=== PATIENT | female | born 1995 | race Caucasian/White ===

== ENCOUNTER 2017-11-04 01:05 | Inpatient (IN) | payer OTHER ==
[2017-11-04] VITALS (12 sets, daily range): BP systolic 107–157; BP diastolic 56–84; PULSE 85–117; RESP 15–20; TEMP 97.8–100.4; O2SAT 95–100
[~2017-11-04 01:05] MED LIST: BISACODYL 10 MG SUPP RECTAL PRN; FAMOTIDINE 20 MG TAB PO PRN; FERR325T18 PO; HUMA1INJ3 IM; HYDR1CRE TOPICAL; LACTULOSE SYRUP 20 GM/30 ML CUP PO PRN; LEVO112T2 PO; MAGNESIUM HYDROXIDE SUSP 30 ML CUP PO PRN; NALOXONE HCL 0.4 MG/ML AMP IV PUSH PRN; NORE1TAB58 PO; RANI150T PO; SENNOSIDES 8.6 MG TAB PO PRN; VITA100064 PO
[2017-11-04] MEDS ORDERED: IOHEXOL 350 MG/ML 50 ML BTL (for RAD DIAG) OTHER ONE (01:16)
[2017-11-04] MEDS: SODIUM CHLOR 0.9% 1000 ML INJ 1,000 ML IV SCH ×3 (01:42→21:13)
[2017-11-04] MEDS: SODIUM CHLORIDE 0.9% FLUSH 10 ML FLUSH IV FLUSH PRN (01:43)
[2017-11-04] MEDS: MORPHINE SULFATE 4 MG/ML INJ IV PUSH PRN ×3 (01:43→16:46)
--- NOTE | 2017-11-04 02:40 | HHI.HP ---
HPI Service [facility] Primary Care Physician No Primary Care Physician Admission Diagnosis obstructive uropathy, right nephrolithiasis, right hydronephrosis . Diagnoses: (1) Obstructive uropathy Chief Complaint: right flank pain Travel History International Travel<30 Days: No Contact w/Intl Traveler <30 Da: No Traveled to Known Affected Are: No Sepsis Criteria SIRS Criteria (2 or more): Heart rate over 90, WBC > 43207, < 4000 or > 10% bands History of Present Illness Ms. Wheeler is a pleasant 22 year-old female with a history of hypothyroidism who presented to the ER complaining of right flank pain who was found to have obstructive uropathy with a 1.7 cm ureteral stone and hydronephrosis. The patient is seen in the CDU. She reports having progressively worsening pain in the right flank area since 10/29/17. She was treating the pain with Aleve and it was ineffective today prompting her visit to the ER. She was also having chills with nausea but no vomiting yesterday. IV morphine has been successfully alleviating her pain. Review of Systems Except as stated in HPI: all other systems reviewed are Neg Past Family Social History Past Medical History Hypothyroidism Allergic Rhinitis . Past Surgical History Denies any prior surgeries . Reported Medications Reported Meds & Active Scripts Active Loestrin Fe 1.5/30 (Norethindrone-Ethinyl Estradiol-Fe) 1.5-30 Mg-Mcg Tab 1 Tab PO DAILY Ferrous Sulfate 325 Mg (65 Mg Iron) Tablet 325 Mg PO TIDPC Take for 3 months. Take on empty stomach with citrus juice. May cause constipation. Levothyroxine (Levothyroxine Sodium) 112 Mcg Tab 112 Mcg PO DAILY Hydrocortisone Topical 1% Cream 1 Applic TOPICAL BID Apply on affected area for up to two weeks then stop. Ranitidine (Ranitidine HCl) 150 Mg Tab 150 Mg PO BID PRN Reported Vitamin D3 (Cholecalciferol) 1,000 Unit Tab 1,000 Units PO DAILY . Allergies: Coded Allergies: No Known Allergies (Verified Adverse Reaction, Unknown, 11/03/17) Family History M. Aunts and M. GM with DM, 1/2 brother with autism, 1/2 brother with ODD and ADHD . Social History Tobacco: denies Alcohol: social drinking Illicit Drugs: denies . Physical Exam Vital Signs Vital Signs Date Time Temp Pulse Resp B/P (MAP) Pulse Ox O2 Delivery O2 Flow Rate FiO2 11/04/17 01:48 15 11/04/17 01:23 98.7 103 15 119/70 (86) 99 Physical Exam GENERAL: This is an obese female patient, in no apparent distress. SKIN: No rashes, ecchymoses or lesions. Skin is warm to touch. HEAD: Atraumatic. Normocephalic. EYES: No scleral icterus. No injection or drainage. ENT: Nose without bleeding, purulent drainage. NECK: Trachea midline. No JVD or lymphadenopathy. CARDIOVASCULAR: Tachycardic rate without murmurs, gallops, or rubs. RESPIRATORY: Clear to auscultation. Breath sounds equal bilaterally. No wheezes , rales, or rhonchi. GASTROINTESTINAL: Abdomen soft, non-tender, nondistended. No guarding. GENITOURINARY: right CVA tenderness MUSCULOSKELETAL: Extremities without clubbing, cyanosis, or edema. No calf tenderness. NEUROLOGICAL: Awake and alert. Motor and sensory grossly within normal limits. Normal speech. . Laboratory Laboratory Tests Test 11/03/17 21:30 11/03/17 21:41 White Blood Count 15.0 TH/MM3 Red Blood Count 4.48 MIL/MM3 Hemoglobin 12.1 GM/DL Hematocrit 36.2 % Mean Corpuscular Volume 80.8 FL Mean Corpuscular Hemoglobin 27.0 PG Mean Corpuscular Hemoglobin Concent 33.4 % Red Cell Distribution Width 13.3 % Platelet Count 252 TH/MM3 Mean Platelet Volume 11.0 FL Immature Granulocyte % (Auto) 0.4 % Neutrophils (%) (Auto) 69.8 % Lymphocytes (%) (Auto) 12.3 % Monocytes (%) (Auto) 17.1 % Eosinophils (%) (Auto) 0.1 % Basophils (%) (Auto) 0.3 % Immature Granulocyte # (Auto) 0.1 TH/MM3 Neutrophils # (Auto) 10.5 TH/MM3 Lymphocytes # (Auto) 1.8 TH/MM3 Monocytes # (Auto) 2.6 TH/MM3 Eosinophils # (Auto) 0.0 TH/MM3 Basophils # (Auto) 0.0 TH/MM3 CBC Comment AUTO DIFF Differential Comment AUTO DIFF CONFIRMED Platelet Estimate NORMAL Platelet Morphology Comment NORMAL Urine Color YELLOW Urine Turbidity CLEAR Urine pH 6.5 Urine Specific [place] LESS/EQUAL 1.005 Urine Protein TRACE mg/dL Urine Glucose (UA) NEG mg/dL Urine Ketones NEG mg/dL Urine Occult Blood TRACE Urine Nitrite NEG Urine Bilirubin NEG Urine Urobilinogen 1.0 MG/DL Urine Leukocyte Esterase SMALL Urine WBC 3-5 /hpf Urine Squamous Epithelial Cells 0-5 /hpf Urine Bacteria FEW /hpf Microscopic Urinalysis Comment CULT NOT INDICATED Blood Urea Nitrogen 9 MG/DL Creatinine 1.10 MG/DL Random Glucose 110 MG/DL Total Protein 8.4 GM/DL Albumin 3.1 GM/DL Calcium Level 8.9 MG/DL Alkaline Phosphatase 109 U/L Aspartate Amino Transf (AST/SGOT) 18 U/L Alanine Aminotransferase (ALT/SGPT) 25 U/L Total Bilirubin 1.1 MG/DL Sodium Level 136 MEQ/L Potassium Level 4.1 MEQ/L Chloride Level 103 MEQ/L Carbon Dioxide Level 24.0 MEQ/L Anion Gap 9 MEQ/L Estimat Glomerular Filtration Rate 63 ML/MIN Lactic Acid Level 0.8 mmol/L . Imaging Last Impressions Abdomen/Pelvis CT 11/03/172119 Signed Impressions: CONCLUSION: Pronounced right hydronephrosis. Large proximal right ureteral stone. . Caprini VTE Risk Assessment Caprini VTE Risk Assessment: No/Low Risk (score <= 1) Caprini Risk Assessment Model Point Value = 1 Point Value = 2 Point Value = 3 Point Value = 5 Age 41-60 Minor surgery BMI > 25 kg/m2 Swollen legs Varicose veins or History of unexplained or recurrent spontaneous Oral contraceptives or hormone replacement Sepsis (< 1 month) Serious lung disease, including pneumonia (< 1 month) Abnormal pulmonary function Acute myocardial infarction Congestive heart failure (< 1 month) History of inflammatory bowel disease Medical patient at bed rest Age 61-74 Arthroscopic surgery Major open surgery (> 45 min) Laparoscopic surgery (> 45 min) Malignancy Confined to bed (> 72 hours) Immobilizing plaster cast Central venous access Age >= 75 History of VTE Family history of VTE Factor V Leiden Prothrombin [id number] Lupus anticoagulant Anticardiolipin antibodies Elevated serum homocysteine Heparin-induced thrombocytopenia Other congenital or acquired thrombophilia Stroke (< 1 month) Elective arthroplasty Hip, pelvis, or leg fracture Acute spinal cord injury (< 1 month) Prophylaxis Regimen Total Risk Factor Score Risk Level Prophylaxis Regimen 0-1 Low Early ambulation 2 Moderate Order ONE of the following: *Sequential Compression Device (SCD) *Heparin 5000 units SQ BID 3-4 Higher Order ONE of the following medications: *Heparin 5000 units SQ TID *Enoxaparin/Lovenox 40 mg SQ daily (WT < 150 kg, CrCl > 30 mL/min) *Enoxaparin/Lovenox 30 mg SQ daily (WT < 150 kg, CrCl > 10-29 mL/min) *Enoxaparin/Lovenox 30 mg SQ BID (WT < 150 kg, CrCl > 30 mL/min) AND/OR *Sequential Compression Device (SCD) 5 or more Highest Order ONE of the following medications: *Heparin 5000 units SQ TID (Preferred with Epidurals) *Enoxaparin/Lovenox 40 mg SQ daily (WT < 150 kg, CrCl > 30 mL/min) *Enoxaparin/Lovenox 30 mg SQ daily (WT < 150 kg, CrCl > 10-29 mL/min) *Enoxaparin/Lovenox 30 mg SQ BID (WT < 150 kg, CrCl > 30 mL/min) AND *Sequential Compression Device (SCD) Assessment and Plan Problem List: (1) Obstructive uropathy ICD Code: N13.9 - Obstructive and reflux uropathy, unspecified Assessment and Plan Ms. Wheeler is a pleasant 22 year-old female with a history of hypothyroidism who presented to the ER complaining of right flank pain who was found to have obstructive uropathy with a 1.7 cm ureteral stone and hydronephrosis. Obstructive Uropathy Ureteral stone - 1.7 cm, right Hydronephrosis, right - Consult urology - appreciate assistance - Morphine 2 - 4 mg IV q4h PRN pain Suspect UTI - febrile, tachycardic, leukocytosis, UA with possible early signs of infection (small leukocyte esterase and few bacteria) - check urine culture - start Ceftriaxone 1 gm IV q24h - await culture results and adjust treatment as indicated FLAVIA - IVF with NS at 100 cc/hr - recheck BMP in a.m. and follow renal indices Hypothyroidism - resume home Synthroid DVT prophylaxis - early ambulation . Discussed Condition With Patient and RN . Ally Hutchinson Nov 04, 2017 02:39
[2017-11-04] MEDS: ACETAMINOPHEN 325 MG TAB PO PRN ×2 (02:46→21:12)
[2017-11-04] MEDS ORDERED: cefTRIAXone INJ 1,000 MG in SODIUM CHLORIDE 0.9% INJ 100 ML IV SCH (03:00)
[2017-11-04] MEDS: LEVOTHYROXINE SODIUM 112 MCG TAB PO SCH (05:27)
[2017-11-04] MEDS: SODIUM CHLORIDE 0.9% FLUSH 10 ML FLUSH IV FLUSH SCH ×2 (09:00→21:13)
--- NOTE | 2017-11-04 09:09 | MB ---
cc: PalmerKevinn China DO DATE: 11/04/2017 HISTORY OF PRESENT ILLNESS: This is a pleasant 22-year-old female who presented with 1 week of right-sided flank pain, which has been intermittent. She denies any fevers, chills, nausea and vomiting. She denies any prior history of stones or family history of stones. A CT scan in the emergency room demonstrated a right-sided hydronephrosis with a large 2 cm right proximal ureteral stone causing obstruction. PAST MEDICAL HISTORY: Noted for hypothyroidism and . PAST SURGICAL HISTORY: She denies any prior surgeries. MEDICATIONS: Please see the chart. ALLERGIES: SHE HAS NO KNOWN DRUG ALLERGIES. FAMILY HISTORY: She denies any family history of nephrolithiasis. SOCIAL HISTORY: She denies smoking, drinking or using drugs. She currently works at [employer]. REVIEW OF SYSTEMS: Notes right-sided flank pain. Denies chest pain, shortness of breath, bleeding disorders, gait disturbances, psychiatric problems, skin lesions. neurologic issues such as weakness or headaches. The remaining review of systems were reviewed and were negative. PHYSICAL EXAMINATION: VITAL SIGNS: Temperature 100.4 T-max, heart rate 103, respiratory rate 15, 119/70 is her blood pressure, 99% on room air. GENERAL: She is a slightly obese 22-year-old female in no acute distress. HEENT: Normocephalic, atraumatic. Pupils equal, round, regular and reactive to light. Extraocular movements intact. NECK: Supple. HEART: Regular rate and rhythm. LUNGS: Clear. ABDOMEN: Soft, nontender, nondistended. There is right CVA tenderness noted. EXTREMITIES: Show no evidence of cyanosis, clubbing, or edema. NEUROLOGIC: Cranial nerves 2-12 are intact. LABORATORY DATA: White count 15.0, hemoglobin is 12.1, hematocrit 36.2, platelet count of 252. Sodium 136, potassium 4.1, CO2 103, chloride is 103, CO2 is 24.0, BUN is 9, creatinine 1.1, glucose of 110. Urinalysis: Small leukocyte esterase. Culture not indicated. PT-INR, PTT is currently pending. IMAGING: Again, imaging studies show a significant right hydronephrosis with a large proximal right ureteral stone approximately 2 cm in diameter. ASSESSMENT AND PLAN: A 22-year-old female who presented with right flank pain with findings of a 2 cm proximal right ureteral stone causing severe right-sided hydronephrosis. Would recommend right percutaneous nephrostomy tube. Due to the large size of the stone, it is very difficult to pass a wire beyond this and then passed the stent over the wire. Given its large size. Therefore, would recommend a percutaneous nephrostomy tube followed by internalization at a later date, followed by extracorporeal shock wave lithotripsy. Thank you for the consult and allowing me to participate in the care of this patient. DO MARIANELA Malone/PATSY , 08:28 AM , 09:08 AM
--- NOTE | 2017-11-04 09:19 | HHI.PR ---
Subjective Remarks Follow-up for nephrolithiasis, obstructive uropathy, hydronephrosis, UTI. Patient reports mild improvement of her right flank pain, however still painful , does get relief with IV morphine. Denies any fevers or chills. Denies any dysuria or suprapubic pain. Denies any increased urinary frequency/urgency. She is urinating without difficulty. She has no other medical complaints at this time. Objective Vitals Vital Signs Date Time Temp Pulse Resp B/P (MAP) Pulse Ox O2 Delivery O2 Flow Rate FiO2 11/04/17 05:24 99.1 11/04/17 02:48 100.4 11/04/17 01:48 15 11/04/17 01:23 98.7 103 15 119/70 (86) [address] abdomen/pelvis on 11/03/17 showed prominent right hydronephrosis and proximal hydroureter down to the level of a 1.7 cm stone in the proximal right ureter Objective Remarks GENERAL: Well-nourished, well-developed pleasant young female patient in [facility]. SKIN: Warm and dry. No rash. HEENT: Normocephalic. Atraumatic. Pupils equal and round. Mucous membranes pink and moist. CARDIOVASCULAR: Regular rate and rhythm. No murmur appreciated. RESPIRATORY: No accessory muscle use. Clear to auscultation. Breath sounds equal bilaterally. GASTROINTESTINAL: Abdomen soft, non-tender, nondistended. Normoactive bowel sounds x4. MUSCULOSKELETAL: No obvious deformities. Extremities without clubbing, cyanosis , or edema. + Right CVA tenderness. NEUROLOGICAL: Awake and alert. No obvious cranial nerve deficits. Motor grossly within normal limits. Moving all extremities spontaneously. Normal speech. PSYCHIATRIC: Appropriate mood and affect; insight and judgment normal. Medications and IVs Current Medications Medications (Trade) Dose Ordered Sig/Mk Route Start Time Stop Time Status Last Admin Sodium Chloride 1,000 ml @ 100 mls/hr Q10H IV 11/04/17 00:01 11/04/17 01:42 (NS Flush) 2 ml UNSCH PRN IV FLUSH 11/04/17 00:15 11/04/17 01:43 (NS Flush) 2 ml BID IV FLUSH 11/04/17 09:00 (Tylenol) 650 mg Q4H PRN PO 11/04/17 00:15 11/04/17 02:46 (Narcan Inj) 0.4 mg UNSCH PRN IV PUSH 11/04/17 00:15 (Milk Of Magnesia Liq) 30 ml Q12H PRN PO 11/04/17 00:15 (Senokot) 17.2 mg Q12H PRN PO 11/04/17 00:15 (Dulcolax Supp) 10 mg DAILY PRN RECTAL 11/04/17 00:15 (Lactulose Liq) 30 ml DAILY PRN PO 11/04/17 00:15 (Morphine Inj) 2 mg Q3H PRN IV PUSH 11/04/17 00:15 11/04/17 08:10 (Ferrous Sulfate) 325 mg TIDPC PO 11/04/17 09:30 (Synthroid) 112 mcg DAILY@0600 PO 11/04/17 06:00 11/04/17 05:27 (Pepcid) 20 mg BID PRN PO 11/04/17 00:30 (Morphine Inj) 4 mg Q3H PRN IV PUSH 11/04/17 02:30 Ceftriaxone Sodium 1000 mg/ Sodium Chloride 100 ml @ 200 mls/hr Q24H IV 11/04/17 03:00 11/04/17 03:27 A/P Problem List: (1) Obstructive uropathy ICD Code: N13.9 - Obstructive and reflux uropathy, unspecified Assessment and Plan 22-year-old female with history of hypothyroidism presents with right flank pain since 10/29/17 Ureterolithiasis, obstructive uropathy, hydronephrosis: Acute -CT abdomen/pelvis on 11/03/17 reviewed, showed prominent right hydronephrosis and proximal hydroureter down to the level of a 1.7 cm stone in the proximal right ureter -Continue IVF, pain control with IV morphine -Consulted urology, appreciate recommendations -IR consulted for percutaneous nephrostomy tube Sepsis with Pyelonephritis: Patient meets sepsis criteria with fever 100.4, tachycardia heart rate 103, WBC 15 K, and suspected source -pyelonephritis -Change antibiotics to IV Zosyn -Give IV fluid hydration -Monitor urine culture, adjust antibiotics as appropriate -Monitor CBC FLAVIA: Postrenal secondary to obstructive uropathy as above -Continue IVF hydration -Avoid nephrotoxins -Monitor renal function Hypothyroidism: chronic -continue patient's Synthroid DVT Prophylaxis: ambulation; avoid chemoprophylaxis with upcoming procedure Smitha Sam PA-C Nov 04, 2017 09:19
[2017-11-04 10:36] LABS: INTERNATIONAL NORMALIZED RATIO 1.1 RATIO; PROTHROMBIN TIME - PATIENT 11.3 SEC (9.8-11.6)
[2017-11-04] MEDS: FERROUS SULFATE 325 MG (65 MG ELEMENTAL IRON) TAB PO SCH ×3 (12:36→18:30)
[2017-11-04] MEDS ORDERED: MIDAZOLAM HCL 2 MG/2 ML VIAL ONE (13:23)
--- NOTE | 2017-11-04 14:08 | PD.RAD ---
Post Procedure Progress Note Pre Procedure Diagnosis: (1) Obstructive uropathy Post Procedure Diagnosis: (1) Obstructive uropathy Procedure Date: Nov 04, 2017 Supervising Radiologist: Alexander Hadley Estimated blood loss: none Anesthesia: Local, Conscious Sedation Plan of Activity Patient to Unit: ROPU Patient Condition: Good Additional Comments: Right nephrostomy placed. Copious amount of purulent urine returned. Tube in good position See PACS Report for procedural detail/treatment Alexander Hadley MD Nov 04, 2017 14:08
--- NOTE | 2017-11-04 14:50 | RADRPT ---
EXAM DATE: 11/04/2017 2:40 PM EDT AGE/SEX: 22 years / Female INDICATIONS: Patient presents with right kidney hydronephrosis in need of nephrostomy tube placement for decompression. CLINICAL DATA: This is the patient's initial encounter. Patient reports that signs and symptoms have been present for 1 day and indicates a pain score of 0/10. MEDICAL/SURGICAL HISTORY: . Hypothyroidism . Denies any prior surgeries COMPARISON: No prior exams available for comparison. FLUORO TIME (min): 2.16 IMAGE SERIES: 2 SEDATION TIME (min): 10 CONTRAST (cc): 5 CC Omnipaque (iohexol) 350 MEDICATION(S): 3 MG midazolam (Versed) IV 150 MCG fentanyl (Sublimaze) IV DEVICE(S): 8 Welsh nephrostomy catheter . . PROCEDURE : 1. Ultrasound-guided puncture of the kidney. 2. Antegrade percutaneous pyelogram. 3. Percutaneous nephrostomy placement. 4. Conscious sedation with continuous EKG and oximetry monitoring. The risks, benefits and alternatives to the procedure were explained and verbal and written consent w as obtained. The site was prepped in sterile fashion. Full sterile technique was used, including ca p, mask, sterile gloves and gown and a large sterile sheet. Hand hygiene and 2% chlorhexidine and/or betadine/alcohol prep was utilized per protocol for cutaneous antisepsis. Sterile gel and sterile probe cover were utilized for ultrasound guidance. The skin and subcutaneous tissues were infiltrate d with local anesthetic solution. With ultrasound and fluoroscopic guidance the right kidney was punctured. A 0.035 angle Glidewire was advanced into the collecting system. An 8 Welsh nephrostomy drain was advanced over the wire and po sitioned within the collecting system without difficulty. There was immediate return of a copious dana unt of purulent urine. Limited Percutaneous antegrade pyelogram was performed demonstrating a dilated collecting system. Conscious sedation was performed with the prescribed dosages and duration as above in the presence of an independent trained radiology nurse to assist in the monitoring of the patient. EKG and oximetry remained stable throughout the procedure. The patient tolerated the procedure well and there were n o complications. The patient was sent to post anesthesia recovery in stable condition. CONCLUSION: 1. Uncomplicated nephrostomy tube placement as above. Electronically signed by: Alexander Hadley MD 11/04/2017 2:49 PM EDT
[2017-11-04] MEDS: PIPERACIL-TAZO 4.5 GM PREMIX 100 ML IV SCH ×2 (16:46→21:12)
[2017-11-05] MEDS: PIPERACIL-TAZO 4.5 GM PREMIX 100 ML IV SCH ×2 (03:21→10:13)
[2017-11-05] MEDS: SODIUM CHLORIDE 0.9% FLUSH 10 ML FLUSH IV FLUSH PRN (03:22)
[2017-11-05] MEDS: MORPHINE SULFATE 4 MG/ML INJ IV PUSH PRN (03:22)
[2017-11-05] MEDS: LEVOTHYROXINE SODIUM 112 MCG TAB PO SCH (05:56)
--- NOTE | 2017-11-05 08:14 | HHI.PR ---
Subjective Patient symptoms today Pt seen and examined. Feeling better after right PCNT placement. Objective Vital Signs Vital Signs Date Time Temp Pulse Resp B/P (MAP) Pulse Ox O2 Delivery O2 Flow Rate FiO2 11/05/17 03:27 14 11/04/17 23:41 98.8 89 18 117/60 (79) 97 11/04/17 22:12 15 11/04/17 19:13 98.9 117 20 124/70 (88) 97 11/04/17 16:10 98.2 106 18 122/65 (84) 98 11/04/17 15:45 97 20 123/69 (87) 100 11/04/17 15:15 98 20 118/66 (83) 99 11/04/17 14:45 94 20 109/67 (81) 99 11/04/17 14:30 100 20 121/81 (94) 99 11/04/17 14:15 98.1 96 20 157/84 (108) 95 11/04/17 09:42 97.8 85 16 107/56 (73) 99 Intake & Output 11/05/17 11/05/17 07:00 19:00 Output Total 2075 ml Balance -2075 ml Drainage Total 2075 ml Objective Remarks Abd:soft,nt,nd Right PCNT draining clear catracho urine Medications and IVs Current Medications Medications (Trade) Dose Ordered Sig/Mk Route Start Time Stop Time Status Last Admin Sodium Chloride 1,000 ml @ 100 mls/hr Q10H IV 11/04/17 00:01 11/04/17 21:13 (NS Flush) 2 ml UNSCH PRN IV FLUSH 11/04/17 00:15 11/05/17 03:22 (NS Flush) 2 ml BID IV FLUSH 11/04/17 09:00 (Tylenol) 650 mg Q4H PRN PO 11/04/17 00:15 11/04/17 21:12 (Narcan Inj) 0.4 mg UNSCH PRN IV PUSH 11/04/17 00:15 (Milk Of Magnesia Liq) 30 ml Q12H PRN PO 11/04/17 00:15 (Senokot) 17.2 mg Q12H PRN PO 11/04/17 00:15 (Dulcolax Supp) 10 mg DAILY PRN RECTAL 11/04/17 00:15 (Lactulose Liq) 30 ml DAILY PRN PO 11/04/17 00:15 (Morphine Inj) 2 mg Q3H PRN IV PUSH 11/04/17 00:15 11/04/17 08:10 (Ferrous Sulfate) 325 mg TIDPC PO 11/04/17 09:30 11/04/17 12:36 (Synthroid) 112 mcg DAILY@0600 PO 11/04/17 06:00 11/05/17 05:56 (Pepcid) 20 mg BID PRN PO 11/04/17 00:30 (Morphine Inj) 4 mg Q3H PRN IV PUSH 11/04/17 02:30 11/05/17 03:22 Piperacillin Sod/ Tazobactam Sod 100 ml @ 200 mls/hr Q6H IV 11/04/17 15:00 11/05/17 03:21 Assessment and Plan Assessment and Plan 22 y.o. female s/p right PCNT with 2.0cm right obstructing renal stone Stable for discharge from standpoint. Continue PO ABx F/U as oupt for internalization of right PCNT next week followed by ESWL in the near future. Justino Chakraborty DO Nov 05, 2017 08:14
[2017-11-05 08:18] VITALS: BP 113/58; PULSE 78; RESP 20; TEMP 98.6; O2SAT 96
[2017-11-05] MEDS ORDERED: ACETAMINOPHEN/HYDROcodone 325 MG/5 MG TAB PO PRN (08:30)
[2017-11-05] MEDS ORDERED: ACETAMINOPHEN/HYDROcodone 325 MG/7.5 MG TAB PO PRN (08:30)
[2017-11-05 08:40] LABS: AUTOMATED NEUTROPHIL # 5.8 TH/MM3 (1.8-7.7); BASOPHIL % 0.5 % (0.0-2.0); EOSINOPHIL # 0.1 TH/MM3 (0-0.4); EOSINOPHIL % 0.9 % (0.0-4.0); HEMATOCRIT 32.6 % (35.0-46.0); HEMOGLOBIN 10.7 GM/DL (11.6-15.3); LYMPH % 21.2 % (9.0-44.0); LYMPHOCYTE # 1.9 TH/MM3 (1.0-4.8); MEAN CELL VOLUME 79.7 FL (80.0-100.0); MEAN CORPUSCULAR HEMOGLOBIN 26.2 PG (27.0-34.0); MEAN CORPUSCULAR HGB CONC 32.8 % (32.0-36.0); MEAN PLATELET VOLUME 8.9 FL (7.0-11.0); MONO % 12.7 % (0.0-8.0); MONOCYTE # 1.1 TH/MM3 (0-0.9); NEUT % 64.7 % (16.0-70.0); PLATELET COUNT 261 TH/MM3 (150-450); RED CELL DISTRIBUTION WIDTH 13.9 % (11.6-17.2)
[2017-11-05] MEDS: SODIUM CHLORIDE 0.9% FLUSH 10 ML FLUSH IV FLUSH SCH (09:00)
[2017-11-05 09:03] LABS: BICARBONATE 24.6 MEQ/L (21.0-32.0); CALCIUM 8.5 MG/DL (8.5-10.1); CREATININE 0.8 MG/DL (0.50-1.00)
[2017-11-05] MEDS: SODIUM CHLOR 0.9% 1000 ML INJ 1,000 ML IV SCH (10:13)
[2017-11-05] MEDS: FERROUS SULFATE 325 MG (65 MG ELEMENTAL IRON) TAB PO SCH (10:13)
--- NOTE | 2017-11-05 10:29 | HHI.PR ---
Subjective Remarks Follow up for ureterolithiasis, sepsis with pyelonephritis. The patient reports feeling much better after drain placement yesterday. Still has some right flank discomfort, worse at the site of the tube, relieved by pain medication. Denies fevers/chills, abdominal pain, nausea/vomiting, or diarrhea. Denies any dysuria or increased urinary frequency/urgency. She wants to go home. Objective Vitals Vital Signs Date Time Temp Pulse Resp B/P (MAP) Pulse Ox O2 Delivery O2 Flow Rate FiO2 11/05/17 08:18 98.6 78 20 113/58 (76) 96 11/05/17 03:27 14 11/04/17 23:41 98.8 89 18 117/60 (79) 97 11/04/17 22:12 15 11/04/17 19:13 98.9 117 20 124/70 (88) 97 11/04/17 16:10 98.2 106 18 122/65 (84) 98 11/04/17 15:45 97 20 123/69 (87) 100 11/04/17 15:15 98 20 118/66 (83) 99 11/04/17 14:45 94 20 109/67 (81) 99 11/04/17 14:30 100 20 121/81 (94) 99 11/04/17 14:15 98.1 96 20 157/84 (108) 95 I/O 11/04/17 11/04/17 11/04/17 11/05/17 11/05/17 11/05/17 06:59 14:59 22:59 06:59 14:59 22:59 Intake Total 2101 ml 300 ml Output Total 850 ml 250 ml 2075 ml 1500 ml Balance 1251 ml 50 ml -2075 ml -1500 ml Intake Oral 300 ml IV Total 2101 ml Output Urine Total 850 ml 1200 ml Drainage Total 250 ml 2075 ml 300 ml Result Diagram: 11/05/17 0816 11/05/17 0822 Imaging Last Impressions Nephrostomy 11/04/17 0000 Signed Impressions: CONCLUSION: 1. Uncomplicated nephrostomy tube placement as above. Objective Remarks GENERAL: Well-nourished, well-developed pleasant young female patient in [facility]. SKIN: Warm and dry. No rash. HEENT: Normocephalic. Atraumatic. Pupils equal and round. Mucous membranes pink and moist. CARDIOVASCULAR: Regular rate and rhythm. No murmur appreciated. RESPIRATORY: No accessory muscle use. Clear to auscultation. Breath sounds equal bilaterally. GASTROINTESTINAL: Abdomen soft, non-tender, nondistended. Normoactive bowel sounds x4. MUSCULOSKELETAL: No obvious deformities. Extremities without clubbing, cyanosis , or edema. + Right CVA tenderness, improved. Right lower flank with percutaneous nephrostomy, no surrounding erythema/edema/drainage. NEUROLOGICAL: Awake and alert. No obvious cranial nerve deficits. Motor grossly within normal limits. Moving all extremities spontaneously. Normal speech. PSYCHIATRIC: Appropriate mood and affect; insight and judgment normal. Procedures 11/04/17 - Right nephrostomy tube placed by IR, copious amounts of purulent urine returned Medications and IVs Current Medications Medications (Trade) Dose Ordered Sig/Mk Route Start Time Stop Time Status Last Admin Sodium Chloride 1,000 ml @ 100 mls/hr Q10H IV 11/04/17 00:01 11/05/17 10:13 (NS Flush) 2 ml UNSCH PRN IV FLUSH 11/04/17 00:15 11/05/17 03:22 (NS Flush) 2 ml BID IV FLUSH 11/04/17 09:00 (Tylenol) 650 mg Q4H PRN PO 11/04/17 00:15 11/04/17 21:12 (Narcan Inj) 0.4 mg UNSCH PRN IV PUSH 11/04/17 00:15 (Milk Of Magnesia Liq) 30 ml Q12H PRN PO 11/04/17 00:15 (Senokot) 17.2 mg Q12H PRN PO 11/04/17 00:15 (Dulcolax Supp) 10 mg DAILY PRN RECTAL 11/04/17 00:15 (Lactulose Liq) 30 ml DAILY PRN PO 11/04/17 00:15 (Morphine Inj) 2 mg Q3H PRN IV PUSH 11/04/17 00:15 11/04/17 08:10 (Ferrous Sulfate) 325 mg TIDPC PO 11/04/17 09:30 11/05/17 10:13 (Synthroid) 112 mcg DAILY@0600 PO 11/04/17 06:00 11/05/17 05:56 (Pepcid) 20 mg BID PRN PO 11/04/17 00:30 Piperacillin Sod/ Tazobactam Sod 100 ml @ 200 mls/hr Q6H IV 11/04/17 15:00 11/05/17 10:13 ([place] 5-325 Mg) 1 tab Q4H PRN PO 11/05/17 08:30 ([place] 7.5-325 Mg) 1 tab Q4H PRN PO 11/05/17 08:30 11/05/17 10:13 A/P Problem List: (1) Obstructive uropathy ICD Code: N13.9 - Obstructive and reflux uropathy, unspecified Assessment and Plan 22-year-old female with history of hypothyroidism presents with right flank pain since 10/29/17 Ureterolithiasis, obstructive uropathy, hydronephrosis: Acute -CT abdomen/pelvis on 11/03/17 reviewed, showed prominent right hydronephrosis and proximal hydroureter down to the level of a 1.7 cm stone in the proximal right ureter -Continue IVF, pain control with IV morphine and norco prn -Consulted urology, appreciate recommendations -IR consulted, placed right percutaneous nephrostomy tube on 11/04, copious amount of purulent urine returned -Cleared for discharge by urology Dr. Chakraborty, recommended outpatient f/up for internalization right right PCNT next week follow by [facility] in the near future Sepsis with Pyelonephritis: Patient meets sepsis criteria with fever 100.4, tachycardia heart rate 103, WBC 15 K, and suspected source -pyelonephritis -Change antibiotics to IV Zosyn -Give IV fluid hydration -Urine culture with 50-100K mixed gram positive mar[place] -CBC shows leukocytosis resolved, sepsis resolved -Will discharge on Cipro 500mg po bid x7days FLAVIA: Postrenal secondary to obstructive uropathy as above -Given IVF hydration -Avoid nephrotoxins -Renal function improved after nephrostomy placed, Cr 0.80, resolved Hypothyroidism: chronic -continue patient's Synthroid DVT Prophylaxis: ambulation Discharge Planning Discharge patient to home Condition on discharge: Improved Regular Diet as tolerated Ad Ching activity Rx written: Cipro 500mg po bid x7days, [place] 7.5/325mg po q4-6hrs x3days #18 Follow-up with primary care physician and urology Dr. Chakraborty within 1 week Smitha Sam PA-C Nov 05, 2017 10:29 am
[2017-11-05 12:23] VITALS: BP 103/40; PULSE 80; RESP 20; TEMP 98.2; O2SAT 96
[2017-11-05] MEDS ORDERED: HYDR-3580 PO (13:24)
[2017-11-05] MEDS ORDERED: CIPR500T2 PO ×2 (13:24→13:39)
--- NOTE | 2017-11-05 13:26 | HHI.DCPOC ---
Discharge Care Plan Diagnosis: (1) Ureterolithiasis (2) Pyelonephritis (3) Obstructive uropathy Goals to Promote Your Health * To prevent worsening of your condition and complications * To maintain your health at the optimal level Directions to Meet Your Goals Take your medications as prescribed Follow your dietary instruction Follow activity as directed Keep your appointments as scheduled Take your immunizations and boosters as scheduled If your symptoms worsen call your PCP, if no PCP go to Urgent Care Center or Emergency Room Smoking is Dangerous to Your Health. Avoid second hand smoke Call the 24-hour hour crisis hotline for domestic abuse at Smitha Sam PA-C Nov 05, 2017 1:26 pm
== END 2017-11-05 17:43 | disposition home or self-care (01) | DRG 872 ==
LOC: NEDDLT 01:05 → NEPHCDU 01:15 → OBSVTOIN 15:14
PROVIDERS: ADMIT Hospitalist; ATTEND Hospitalist
PROC: 0T9030Z Drainage of Right Kidney with Drainage Device, Percutaneous Approach (ICD-10-PCS; principal; 2017-11-04)
DX: A41.9 Sepsis, unspecified organism (principal); N17.9 Acute kidney failure, unspecified; N13.2 Hydronephrosis with renal and ureteral calculous obstruction; N12 Tubulo-interstitial nephritis, not specified as acute or chronic; N13.9 Obstructive and reflux uropathy, unspecified; E03.9 Hypothyroidism, unspecified
CPT/HCPCS: 50695; 80048; 85025; 85610; 85730; 87086; 99152; C1729; C1769; J0696; J2250; J2270; J2543; J3010; J7030; Q9967

== ENCOUNTER 2017-11-12 06:49 | Day surgery (SDC) | payer OTHER ==
[~2017-11-12] VITALS: Ht 165.1 cm; Wt 98.0 kg
[~2017-11-12 06:49] MED LIST changes: -BISACODYL 10 MG SUPP RECTAL PRN; +CIPR500T2 PO; -FAMOTIDINE 20 MG TAB PO PRN; +HYDR-3580 PO; -LACTULOSE SYRUP 20 GM/30 ML CUP PO PRN; -MAGNESIUM HYDROXIDE SUSP 30 ML CUP PO PRN; -NALOXONE HCL 0.4 MG/ML AMP IV PUSH PRN; -SENNOSIDES 8.6 MG TAB PO PRN
[2017-11-12] MEDS ORDERED: IOHEXOL 350 MG/ML 50 ML BTL (for RAD DIAG) OTHER ONE (06:50)
[2017-11-12 07:17] VITALS: BP 142/83; PULSE 84; RESP 20; TEMP 98.1; O2SAT 96
[2017-11-12] MEDS ORDERED: LEVOFLOXACIN 500 MG PREMIX 100 ML - nephrostomy tube insertion or exchange IV SCH (07:45)
[2017-11-12] MEDS ORDERED: MIDAZOLAM HCL 2 MG/2 ML VIAL ONE (08:00)
[2017-11-12] MEDS ORDERED: fentaNYL CITRATE 250 MCG/5 ML AMP ONE (08:00)
[2017-11-12 08:20] LABS: BICARBONATE 24.4 MEQ/L (21.0-32.0); CREATININE 0.76 MG/DL (0.50-1.00)
[2017-11-12 08:55] VITALS: BP 149/77; PULSE 95; RESP 18; TEMP 98; O2SAT 94
--- NOTE | 2017-11-12 08:57 | PD.RAD ---
Post Procedure Progress Note Procedure Date: Nov 12, 2017 Supervising Radiologist: Rashaad Sampson Proceduralist/Assist: Malorie Goyal, RT(R), Other Anesthesia: Conscious Sedation Plan of Activity Patient to Unit: [facility] Patient Condition: Good See PACS Report for procedural detail/treatment Rashaad Sampson MD Nov 12, 2017 08:57
[2017-11-12 09:10] VITALS: BP 121/73; PULSE 73; RESP 18; O2SAT 97
[2017-11-12] MEDS ORDERED: oxyCODONE/ACETAMINOPHEN 5 MG/325 MG TAB PO PRN (09:30)
--- NOTE | 2017-11-12 09:31 | PD.RAD ---
Post Procedure Progress Note Procedure Date: Nov 12, 2017 Supervising Radiologist: Rashaad Sampson Proceduralist/Assist: RT Essence(R), Other Anesthesia: Local Plan of Activity Patient to Unit: [facility] Patient Condition: Good See PACS Report for procedural detail/treatment Rashaad Sampson MD Nov 12, 2017 09:31
[2017-11-12 09:40] VITALS: BP 111/70; PULSE 81; RESP 18; O2SAT 97
[2017-11-12] MEDS ORDERED: LACTATED RINGER'S 1000 ML INJ 1,000 ML IV SCH (10:00)
[2017-11-12 10:10] VITALS: BP 113/72; PULSE 72; RESP 20; O2SAT 97
[2017-11-12 10:40] VITALS: BP 120/72; PULSE 74; RESP 20; O2SAT 97
--- NOTE | 2017-11-15 07:31 | RADRPT ---
EXAM DATE: 11/12/2017 9:29 AM EDT AGE/SEX: 22 years / Female INDICATIONS: Obstructive uropathy. Right nephrolithiasis. Right hydronephrosis. Patient here to inte rnalize neph tube. CLINICAL DATA: This is the patient's subsequent encounter. Patient reports that signs and symptoms h ave been present for 1 week and indicates a pain score of 0/10. MEDICAL/SURGICAL HISTORY: Hypothyroidism. Nephrostomy tube, right. COMPARISON: [facility], CT ABDOMEN & PELVIS W/O CONTRAST, 11/03/2017. . FLUORO TIME (min): 5.52 IMAGE SERIES: 4 SEDATION TIME (min): 30 CONTRAST (cc): 10 Omnipaque (iohexol) 350 MEDICATION(S): 2 mg midazolam (Versed) IV 250 mcg fentanyl (Sublimaze) IV Prophylactic antibiotics were administered with appropriate pre-procedure timing. DEVICE(S): 8 Congolese . . PROCEDURE: 1. Percutaneous antegrade pyelogram 2. Conversion of nephrostomy tube to nephroureteral stent 3. Conscious sedation with continuous EKG and oximetry monitoring The risks, benefits and alternatives to the procedure were explained and verbal and written consent w as obtained. The site was prepped in sterile fashion. Full sterile technique was used, including ca p, mask, sterile gloves and gown and a large sterile sheet. Hand hygiene and 2% chlorhexidine and/or betadine/alcohol prep was utilized per protocol for cutaneous antisepsis. The skin and subcutaneous tissues were infiltrated with local anesthetic solution. Percutaneous antegrade pyelogram was performed to delineate the urinary tract. This again confirms an occlusive large 18 mm calcified calculus in the proximal left ureter. A guidewire was placed through the previous placed nephrostomy and subsequently advanced through the proximal ureteral occlusion in to the bladder and over this the prescribed stent was placed. A new nephrostomy catheter was placed o chalo a second guidewire and capped. Follow-up pyelogram demonstrates good position. Conscious sedation was performed with the prescribed dosages and duration as above in the presence of an independent trained radiology nurse to assist in the monitoring of the patient. EKG and oximetry remained stable throughout the procedure. The patient tolerated the procedure well and there were no complications. CONCLUSION: 1. Uncomplicated stent as above. Plan: Nephrostomy catheter is capped and patient will return early next week for nephrostomy catheter removal if she remains asymptomatic. Electronically signed by: Rashaad Sampson MD 11/15/2017 7:30 AM EDT
== END 2017-11-12 11:00 | disposition home or self-care (01) ==
LOC: HROP 06:49 → HRIP 06:52 → HROP 11:00
PROVIDERS: ATTEND Urology
DX: N13.2 Hydronephrosis with renal and ureteral calculous obstruction (principal); N13.9 Obstructive and reflux uropathy, unspecified; E03.9 Hypothyroidism, unspecified
CPT/HCPCS: 50695; 80048; 99152; 99153; C1729; C1769; C1887; C2617; J1956; J2250; J3010; Q9967

== ENCOUNTER 2017-11-16 06:37 | Day surgery (SDC) | payer OTHER ==
[~2017-11-16 06:37] MED LIST changes: -CIPR500T2 PO; -HYDR-3580 PO; -HYDR1CRE TOPICAL; -NORE1TAB58 PO; -RANI150T PO; -VITA100064 PO
[2017-11-16 06:54] VITALS: BP 139/68; PULSE 66; RESP 18; TEMP 97.9; O2SAT 99
--- NOTE | 2017-11-16 12:46 | RADRPT ---
EXAM DATE: 11/16/2017 8:41 AM EDT AGE/SEX: 22 years / Female INDICATIONS: Patient with history of right nephrolithiasis in need of nephrostomy tube removal. CLINICAL DATA: This is the patient's subsequent encounter. Patient reports that signs and symptoms h ave been present for 1 week and indicates a pain score of 0/10. MEDICAL/SURGICAL HISTORY: Hypothyroidism. None. COMPARISON: No prior exams available for comparison. IMAGE SERIES: 0 DEVICE(S): . . PROCEDURE: 1. Antegrade pyelogram. 2. Nephrostomy tube removal. The risks, benefits and alternatives to the procedure were explained and verbal and written consent w as obtained. The site was prepped in sterile fashion. Patient reports no discomfort with the ureteri c stent and capped nephrostomy tube. In the patient's stretcher within [facility], adhesive dressing was removed. Tube was excised and removed. Site was appropriately dressed. CONCLUSION: Uncomplicated nephrostomy tube removal as above. Electronically signed by: Jarrod Velazquez MD 11/16/2017 12:45 PM EDT
== END 2017-11-16 07:50 | disposition home or self-care (01) ==
LOC: HROP 06:37 → HRIP 06:38 → HROP 07:50
PROVIDERS: ATTEND Urology
DX: Z46.82 Encounter for fitting and adjustment of non-vascular catheter (principal); E03.9 Hypothyroidism, unspecified; Z87.442 Personal history of urinary calculi
CPT/HCPCS: 50389

== ENCOUNTER → 2017-11-17 | Day surgery (SDC) | payer OTHER ==
[~2017-11-17] VITALS: Ht 165.1 cm; Wt 99.2 kg
[~2017-11-17] MED LIST changes: +CHLORHEXIDINE GLUCONATE 2 % 1 PACK (2 CLOTHS) TOPICAL PRN; +LACTATED RINGER'S 1000 ML IV PRN; +LIDOCAINE HCL 1% PF 5 ML SYRINGE OTHER ONE; +METOPROLOL TARTRATE 25 MG TAB PO PRN; +MIDAZOLAM HCL 2 MG/2 ML VIAL ONE; +POVIDONE IODINE 5% (ANTISEPSIS KIT) 4 APPLICATIONS EACH NARE PRN; +PROPOFOL 200 MG/20 ML AMP IV ONE; +SODIUM CHLORID 0.9% 500 ML IV PRN; +ceFAZolin 1,000 MG/NS 100 ML IV SCH; +oxyCODONE/ACETAMINOPHEN 5 MG/325 MG TAB ONE
--- NOTE | 2017-11-17 08:48 | RADRPT ---
EXAM DATE: 11/17/2017 7:41 AM EDT AGE/SEX: 22 years / Female INDICATIONS: Pre op lithotripsy. CLINICAL DATA: This is the patient's initial encounter. Patient reports that signs and symptoms have been present for 1 day and indicates a pain score of 4/10. MEDICAL/SURGICAL HISTORY: . Hypothyroidism. None. COMPARISON: . FINDINGS: The abdominal bowel gas pattern is normal. Double-J stent is identified on the right. A 9 mm stone i s seen adjacent to the proximal portion of the stent at the level of the L3 vertebral. The osseous st ructures are unremarkable. CONCLUSION: 1. 9 mm stone in the right ureter at the level of L3. 2. Double-J stent in the right collecting system appears to be appropriately position Electronically signed by: Jarrod Velazquez MD 11/17/2017 8:46 AM EDT
--- NOTE | 2017-11-17 08:59 | PD.OP ---
Operative Report Date of Surgery: Nov 17, 2017 Preoperative Diagnosis: 2 cm right proximal ureteral stone Postoperative Diagnosis: Same Procedure: Right extracorporeal shockwave lithotripsy Anesthesia: MAC Surgeon: Justino Chakraborty Dust Collector Operator(s): None Resident Surgeon: None Operation and Findings: 22-year-old female presented a week and half ago with right-sided flank pain. A 2 cm right proximal ureteral stone was identified. The patient underwent right percutaneous nephrostomy tube placement. The following week she underwent internalization of her right double-J stent. She presents today to undergo right extracoporeal shockwave lithotripsy. Risk and benefits were discussed preoperatively the patient was willing to proceed. Patient was brought to the operating room and identified by myself as Anabeladelaide Wheeler. She is placed in the supine position on the operating table. Preprocedure antibiotics were administered as well as MAC anesthesia. Under fluoroscopic imaging guidance the stone was visualized. The patient then received 3000 shocks with fragmentation noted of the stone. She tolerated the procedure well and was awoken and transferred to recovery in stable condition. She will follow-up in the office in 2 weeks and obtain a KUB x-ray prior. Justino Chakraborty DO Nov 17, 2017 08:59
[2017-11-17 10:10] VITALS: BP 129/79; PULSE 65; RESP 18; TEMP 98; O2SAT 100
== END | disposition home or self-care (01) ==
LOC: HSDC 06:00
PROVIDERS: ATTEND Urology
DX: N20.1 Calculus of ureter (principal); E03.9 Hypothyroidism, unspecified; D50.9 Iron deficiency anemia, unspecified; K62.5 Hemorrhage of anus and rectum
CPT/HCPCS: 00872; 50590; 74018; 84702; J0690; J2250; J7120